=== PATIENT | female | born 1980 | race Caucasian/White ===

== ENCOUNTER 2020-09-15 15:57 | Emergency (ER) | payer OTHER ==
[~2020-09-15] VITALS: Ht 165.1 cm; Wt 121.6 kg
[2020-09-15 16:02] VITALS: BP 133/66
--- NOTE | 2020-09-15 16:05 | NUR ---
PT AMBULATED TO BED 4.
--- NOTE | 2020-09-15 16:09 | NUR ---
39 Y/O FEMALE C/O MID UPPER PAIN 10/10 DESCRIBES STABBING WORST WHEN STANDING AND DEEP BREATHING, CHEST PAIN X1 HOUR. LUNGS ARE CLEAR THROUGHOUT, NO SIGNS OF RESPIRATORY DISTRESS, VISIBLE EQUAL RISE AND FALL OF CHEST. PT DENIES N/V, DENIES FEVER/CHILLS. PMH: ARTHRITIS, DJD, AND L2-L6 BULGING DISCS NKA
--- NOTE | 2020-09-15 17:16 | NUR ---
Dr. Fields at pt bedside for further evaluation.
[2020-09-15] MEDS ORDERED: CIPR500T4 PO (17:39)
[2020-09-15 17:48] VITALS: BP 133/66
--- NOTE | 2020-09-15 17:49 | NUR ---
Patient discharged with v/s stable. Written and verbal after care instructions given and explained. Patient alert, oriented and verbalized understanding of instructions. Ambulatory with steady gait. All questions addressed prior to discharge. ID band removed. Patient advised to follow up with PMD. Rx of cipro 500mg PO BID given. Patient educated on indication of medication including possible reaction and side effects. Opportunity to ask questions provided and answered.
== END 2020-09-15 17:49 | disposition home or self-care (01) ==
LOC: MED 15:57
DX: N39.0 Urinary tract infection, site not specified (principal); M54.6 Pain in thoracic spine
CPT/HCPCS: 81002; 81025; 93005; 99283

== ENCOUNTER 2020-10-27 00:54 | Emergency (ER) | payer OTHER ==
[~2020-10-27] VITALS: Ht 162.6 cm; Wt 117.0 kg
[~2020-10-27 00:54] MED LIST: CIPR500T4 PO
[2020-10-27 00:56] VITALS: BP 118/74
--- NOTE | 2020-10-27 01:02 | NUR ---
PT AMBULATED TO BED #4
--- NOTE | 2020-10-27 01:05 | NUR ---
PATIENT BIB SELF FOR C/O PALPATIONS STARTING X 25 MIN AGO. PATIENT STATES, "I WOKE UP OUT OF NO WHERE AND MY CHEST JUST FEELS FUNNY, LIKE THERE IS SOMETHIGN THERE." PER PATIENT DENIES ANY PAIN OR PRESSURE, STATES NUMBNESS OF L SIDE OF NECK AND L SHOULDER NUMBNESS. PATIENT DENIES SOB, DENIES COUGH. LUNG SOUNDS CLEAR A/P BILAT. S1S2 NOTED. PATIENT CAP REFIL <3. RADIAL PULSES EQUAL AND STRONG BILAT. MEDHX: ARTHRITIS IN LOW BACK NKA
--- NOTE | 2020-10-27 01:10 | NUR ---
ERMD AT BEDSIDE FOR MEDICAL EVALUATION.
[2020-10-27] MEDS ORDERED: ASPIRIN 325 MG TAB PO ONE (01:50)
--- NOTE | 2020-10-27 01:52 | NUR ---
LAB AT BEDSIDE DRAWING BLOOD.
[2020-10-27 02:01] LABS: BASOPHILS % (AUTO) 0.4 % (0.0-2.0); EOSINOPHILS # (AUTO) 0.1 K/uL (0-0.4); EOSINOPHILS % (AUTO) 1.1 % (0.0-4.0); HEMATOCRIT 38.2 % (36-48); HEMOGLOBIN 12.9 g/dL (12.0-16.0); LYMPHOCYTES # (AUTO) 2.7 K/uL (2.5-16.5); LYMPHOCYTES % (AUTO) 37.5 % (20.5-51.1); MEAN CORPUSCULAR HEMOGLOBIN 31 pg (27-31); MEAN CORPUSCULAR HGB CONC 34 g/dL (33-37); MEAN CORPUSCULAR VOLUME 91.5 fL (80-94); MONOCYTES # (AUTO) 0.5 K/uL (0.8-1.0); MONOCYTES % (AUTO) 6.4 % (1.7-9.3); NEUTROPHILS # (AUTO) 3.9 K/uL (1.8-7.7); NEUTROPHILS % (AUTO) 54.6 % (42.2-75.2); PLATELET COUNT (AUTO) 398 K/uL (140-450); RED BLOOD CELL COUNT(AUTO) 4.18 MIL/uL (4.20-5.40); RED CELL DISTRIBUTION WIDTH 12.5 % (11.6-13.7); WHITE BLOOD COUNT (AUTO) 7.1 K/uL (4.8-10.8)
--- NOTE | 2020-10-27 02:06 | NUR ---
PER ERMD IV INSERTION IS NOT NEEDED AT THIS TIME.
--- NOTE | 2020-10-27 02:06 | NUR ---
XRAY AT BEDSIDE.
[2020-10-27 02:12] LABS: ANION GAP 11.8 (8-16); CARBON DIOXIDE 26.5 mmol/L (21-32); CREATININE 0.8 mg/dL (0.6-1.3); POTASSIUM 4.3 mmol/L (3.5-5.1)
--- NOTE | 2020-10-27 02:29 | NUR ---
PER MONAE 2ND EKG CAN WAIT TIL 0300. PATIENT WILL REMAIN IN ER FOR TELE OBERVATION AND REPEAT TROPNIN LEVELS WILL BE DRAWN @ 0430. PATIENT REMAINS ON INFORMATICS SCIENTIST. PER FRANCISCO J, " I FEEL OK BUT THEN I START TO THINK ABOUT MY CHEST AND IT FEELS LIKE MY HEART IS BEATING AGAIN." VSS AT THIS TIME. BED IS LOCKED AND IN LOWEST POSITION. PATIENT GIVEN A BLANKET FOR COMFORT MEASURES.
--- NOTE | 2020-10-27 03:10 | NUR ---
Patient appears to be resting comfortably in bed. Vital Signs within normal limits. Respirations even and unlabored.
--- NOTE | 2020-10-27 04:36 | NUR ---
Core Baker at bedside re-drawing Troponin. Patient remains on cardiac/vascular sonographer. VSS. Patient states, "I don't feel pain right now, I feel better." Bed is locked and in lowest position.
--- NOTE | 2020-10-27 06:00 | NUR ---
ALL RESULTS BACK AN NOTED BY ERMD AND FOR D/C
[2020-10-27 06:08] VITALS: BP 108/70
--- NOTE | 2020-10-27 06:08 | NUR ---
Patient discharged with v/s stable. Written and verbal after care instructions given and explained. Patient verbalized understanding. Ambulatory with steady gait. All questions addressed prior to discharge. Advised to follow up with PMD.
== END 2020-10-27 06:08 | disposition home or self-care (01) ==
LOC: MED 00:54
DX: R07.89 Other chest pain (principal); R00.2 Palpitations; Z79.899 Other long term (current) drug therapy
CPT/HCPCS: 36415; 71045; 80048; 84484; 85025; 93005; 99285

== ENCOUNTER 2021-06-17 06:45 | Emergency (ER) | payer OTHER ==
[~2021-06-17] VITALS: Ht 162.6 cm; Wt 104.3 kg
[2021-06-17 07:02] VITALS: BP 137/85
--- NOTE | 2021-06-17 07:25 | NUR ---
called pt name in [id number], pt was not present at this time
--- NOTE | 2021-06-17 07:58 | NUR ---
called pt name in [id number], pt was not present at this time
== END 2021-06-17 07:58 | disposition left against medical advice (07) ==
LOC: MED 06:45
DX: R50.9 Fever, unspecified (principal); Z53.21 Procedure and treatment not carried out due to patient leaving prior to being seen by health care provider

== ENCOUNTER 2021-07-05 16:39 | Emergency (ER) | payer OTHER ==
[~2021-07-05] VITALS: Ht 165.1 cm; Wt 106.6 kg
[2021-07-05 16:43] VITALS: BP 138/99
--- NOTE | 2021-07-05 16:46 | NUR ---
KAHLIL DILLON EXAMINING PT IN TRIAGE
[2021-07-05] MEDS ORDERED: AMOX-1000 PO (16:54)
[2021-07-05 17:07] VITALS: BP 138/99
--- NOTE | 2021-07-05 17:07 | NUR ---
No nursing interventions implemented. Patient discharged with v/s stable. Written and verbal after care instructions given and explained. Patient alert, oriented and verbalized understanding of instructions. Ambulatory with steady gait. All questions addressed prior to discharge. ID band removed. Patient advised to follow up with PMD. Rx of AMOXICILLIN given. Patient educated on indication of medication including possible reaction and side effects. Opportunity to ask questions provided and answered.
== END 2021-07-05 17:07 | disposition home or self-care (01) ==
LOC: MED 16:39
DX: K08.89 Other specified disorders of teeth and supporting structures (principal); Z79.899 Other long term (current) drug therapy
CPT/HCPCS: 99283

== ENCOUNTER 2021-07-14 09:58 | Emergency (ER) | payer OTHER ==
[~2021-07-14] VITALS: Ht 162.6 cm; Wt 116.1 kg
[~2021-07-14 09:58] MED LIST changes: +AMOX-1000 PO
[2021-07-14 10:10] VITALS: BP 150/86
--- NOTE | 2021-07-14 10:28 | NUR ---
DR BARRAGAN EVALUATING PATIENT AT BEDSIDE
[2021-07-14] MEDS: ONDANSETRON 4 MG ODT PO ONE (10:41)
--- NOTE | 2021-07-14 10:42 | NUR ---
PATIENT REPORTS INCREASE IN NAUSEA, MEDICATED PATIENT PER ORDERS.
[2021-07-14] MEDS ORDERED: DICYCLOMINE HCL LIQUID 10 MG/5 ML UDC ONE (11:14)
[2021-07-14] MEDS ORDERED: ALUMINUM HYD/MAG/SIMETHICONE 30 ML UDC ONE (11:14)
[2021-07-14] MEDS: DICYCLOMINE HCL LIQUID 20 MG, ALUMINUM HYD/MAG/SIMETHICONE 30 ML, LIDOCAINE VISCOUS 2% ... PO ONE ×3 (11:22)
--- NOTE | 2021-07-14 11:29 | NUR ---
OBTAINED CONSENT TO SPEAK WITH PATIENT'S MOTHER JOMAR FOR STATUS UPDATE.
[2021-07-14] MEDS ORDERED: OMEP40EC24 PO (12:00)
[2021-07-14] MEDS ORDERED: IBUP-2213 PO (12:00)
[2021-07-14] MEDS ORDERED: ONDA8TAB87 PO (12:00)
[2021-07-14 12:15] VITALS: BP 150/86
--- NOTE | 2021-07-14 12:15 | NUR ---
Patient discharged with v/s stable. Written and verbal after care instructions given and explained. Patient alert, oriented and verbalized understanding of instructions. Ambulatory with steady gait. All questions addressed prior to discharge. ID band removed. Patient advised to follow up with PMD. Rx of IBUPROFEN, OMEPRAZOLE, ZOFRAN given. Patient educated on indication of medication including possible reaction and side effects. Opportunity to ask questions provided and answered.
== END 2021-07-14 12:15 | disposition home or self-care (01) ==
LOC: MED 09:58
DX: R10.9 Unspecified abdominal pain (principal); R11.2 Nausea with vomiting, unspecified; Z79.899 Other long term (current) drug therapy
CPT/HCPCS: 81002; 81025; 99283; Q0162

== ENCOUNTER 2022-01-27 14:16 | Emergency (ER) | payer OTHER ==
[~2022-01-27] VITALS: Ht 165.1 cm; Wt 113.4 kg
[~2022-01-27 14:16] MED LIST changes: +IBUP-2213 PO; +OMEP40EC24 PO; +ONDA8TAB87 PO
[2022-01-27 14:25] VITALS: BP 130/97
--- NOTE | 2022-01-27 14:34 | NUR ---
C/O 11/29 RIGHT LOWER BACK PAIN RADIATING TO RIGHT LEG X 2 DAYS. PMH: DDD, , BULGING OF LUMBAR INTERVERTICAL DISC
[2022-01-27] MEDS: KETOROLAC 60 MG/2 ML VIAL IM ONE (15:44)
[2022-01-27] MEDS ORDERED: ACET-8386 PO (15:47)
[2022-01-27] MEDS ORDERED: IBUP-2213 PO (15:47)
--- NOTE | 2022-01-27 16:08 | NUR ---
Patient discharged with v/s stable. Written and verbal after care instructions given and explained. Patient alert, oriented and verbalized understanding of instructions. Ambulatory with steady gait. All questions addressed prior to discharge. ID band removed. Patient advised to follow up with PMD. Rx of [place], Ibuprofen given. Patient educated on indication of medication including possible reaction and side effects. Opportunity to ask questions provided and answered.
== END 2022-01-27 16:08 | disposition home or self-care (01) ==
LOC: MED 14:16
DX: M54.50 Low back pain, unspecified (principal)
CPT/HCPCS: 81002; 81025; 96372; 99283; J1885

== ENCOUNTER 2022-09-07 15:47 | Emergency (ER) | payer OTHER ==
[~2022-09-07] VITALS: Ht 165.1 cm; Wt 85.7 kg
[~2022-09-07 15:47] MED LIST changes: +ACET-8905 PO
[2022-09-07 16:10] VITALS: BP 137/85
--- NOTE | 2022-09-07 18:18 | NUR ---
DR JAY ATTEMPTED TO BRING PT BACK, NO ANSWER IN LOBBY/OUTSIDE
--- NOTE | 2022-09-07 18:36 | NUR ---
LAST ATTEMPT, NOT FOUND IN LOBBY/OUTSIDE. PATIENT ELOPED FROM FACILITY. DISCHARGE INSTRUCTIONS NOT GIVEN TO PATIENT. DR. JAY NOTIFIED.
== END 2022-09-07 18:36 | disposition left against medical advice (07) ==
LOC: MED 15:47
DX: S30.811A Abrasion of abdominal wall, initial encounter (principal); V49.88XA Car occupant (driver) (passenger) injured in other specified transport accidents, initial encounter; Y93.89 Activity, other specified; Y92.89 Other specified places as the place of occurrence of the external cause; Y99.8 Other external cause status
CPT/HCPCS: 99281

== ENCOUNTER 2023-06-11 16:37 | Emergency (ER) | payer OTHER ==
[~2023-06-11] VITALS: Ht 162.6 cm; Wt 113.4 kg
[2023-06-11 16:54] VITALS: BP 142/101; PULSE 111; RESP 19; TEMP 98; O2SAT 94
[2023-06-11] MEDS ORDERED: NACL 0.9% 1,000 ML IV ONE (17:10)
[2023-06-11 17:57] LABS: BASOPHILS % (AUTO) 0.3 % (0.0-2.0); EOSINOPHILS # (AUTO) 0.1 K/uL (0-0.4); EOSINOPHILS % (AUTO) 0.8 % (0.0-4.0); HEMATOCRIT 42.2 % (36-48); HEMOGLOBIN 14.5 g/dL (12.0-16.0); LYMPHOCYTES % (AUTO) 22.3 % (20.5-51.1); MEAN CORPUSCULAR HEMOGLOBIN 31 pg (27-31); MEAN CORPUSCULAR HGB CONC 34 g/dL (33-37); MEAN CORPUSCULAR VOLUME 91.4 fL (80-94); MONOCYTES # (AUTO) 0.3 K/uL (0.8-1.0); NEUTROPHILS # (AUTO) 6.5 K/uL (1.8-7.7); NEUTROPHILS % (AUTO) 73.6 % (42.2-75.2); PLATELET COUNT (AUTO) 476 K/uL (140-450); RED BLOOD CELL COUNT(AUTO) 4.62 MIL/uL (4.20-5.40); RED CELL DISTRIBUTION WIDTH 12.5 % (11.6-13.7); WHITE BLOOD COUNT (AUTO) 8.9 K/uL (4.8-10.8)
[2023-06-11 18:06] LABS: ANION GAP 9.2 (8-16); CALCIUM 8.9 mg/dL (8.5-10.1); CARBON DIOXIDE 25.8 mmol/L (21-32); CREATININE 0.7 mg/dL (0.6-1.3)
[2023-06-11 18:09] VITALS: O2SAT 94
[2023-06-11 18:50] LABS: APPEARANCE,URINE CLEAR (CLEAR); BILIRUBIN,URINE NEGATIVE (NEGATIVE); BLOOD, URINE NEGATIVE (NEGATIVE); COLOR,URINE YELLOW (YELLOW); LEUKOCYTE ESTERASE ,URINE NEGATIVE (NEGATIVE); NITRITE, URINE NEGATIVE (NEGATIVE); PROTEIN,URINE NEGATIVE (NEGATIVE); UGLUCOSE NEGATIVE (NEGATIVE); UROBILINOGEN,URINE 0.2 EU/dL (0.2 - 1)
[2023-06-11 19:40] VITALS: BP 140/85; PULSE 84; RESP 16; TEMP 98.1; O2SAT 99
== END 2023-06-11 19:40 | disposition home or self-care (01) ==
LOC: MED 16:37
DX: R00.0 Tachycardia, unspecified (principal); Z79.899 Other long term (current) drug therapy; Z79.1 Long term (current) use of non-steroidal anti-inflammatories (NSAID); Z79.2 Long term (current) use of antibiotics
CPT/HCPCS: 36415; 80048; 81003; 84443; 85025; 85379; 93005; 96360; 99284; J7030